=== PATIENT | male | born 1990 | race African-American/Black ===

== ENCOUNTER 2018-02-01 14:12 | Emergency (ER) | payer MEDICAID ==
[~2018-02-01] VITALS: Ht 175.3 cm; Wt 63.5 kg
[2018-02-01 14:19] VITALS: Ht 175.3 cm; Wt 63.5 kg
[2018-02-01 15:12] LABS: CALCIUM 10.3 mg/dL (8.5-10.1); CARBON DIOXIDE 24.2 mmol/L (21-32); CHLORIDE SERUM 104 mmol/L (98-107); CREATININE SERUM 1.5 mg/dL (0.7-1.3); GFR1 > 60 mL/min; GLUCOSE SERUM 93 mg/dL (74-106); POTASSIUM SERUM 3.8 mmol/L (3.5-5.1); SODIUM SERUM 143 mmol/L (136-145)
[2018-02-01 15:16] LABS: ALBUMIN 4.8 g/dL (3.4-5.0); ALKALINE PHOSPHATASE 65 U/L (46-116); ALT/SGPT 22 U/L (16-63); AST/SGOT 20 U/L (15-37); BILIRUBIN TOTAL 0.5 mg/dL (0.20-1.00)
[2018-02-01 15:17] LABS: TOTAL PROTEIN, SERUM 8.8 g/dL (6.4-8.2)
[2018-02-01 17:43] VITALS: BP 101/72
== END 2018-02-01 17:43 | disposition home or self-care (01) ==
LOC: ED 14:12
PROVIDERS: Emergency Medicine
DX: R56.9 Unspecified convulsions (principal)
CPT/HCPCS: J1885; J2060